=== PATIENT | female | born 1945 | race Caucasian/White ===

== ENCOUNTER 2018-09-05 19:18 | Emergency (ER) | payer OTHER, MEDICAID ==
[~2018-09-05] VITALS: Ht 162.6 cm; Wt 72.6 kg
[2018-09-05 19:41] VITALS: Ht 162.6 cm; Wt 72.6 kg
[2018-09-05 22:04] VITALS: BP 165/81
== END 2018-09-05 22:04 | disposition home or self-care (01) ==
LOC: ED 19:18
DX: M25.562 Pain in left knee (principal); I10 Essential (primary) hypertension; E11.9 Type 2 diabetes mellitus without complications